=== PATIENT | male | born 1990 | race Caucasian/White ===

== ENCOUNTER 2016-10-16 21:14 | Emergency (ER) | payer SELFPAY ==
[2016-10-16 22:12] LABS: Basophils % (Auto) 0.6 % (0.0-1.8); Eosinophils % (Auto) 7.5 % (0.0-4.3); Hematocrit 46.3 % (35.5-45.6); Hemoglobin 15.8 gm/dl (11.8-15.2); Mean Corpuscular HGB Conc 34 % (32-34); Mean Corpuscular Hemoglobin 29 pg (28-32); Mean Corpuscular Volume 86 fl (84-94); Platelet Count 236 K/mm3 (140-440); Red Blood Count 5.37 M/mm3 (3.65-5.03); Red Cell Distribution Width 11.9 % (13.2-15.2); White Blood Count 8.6 K/mm3 (4.5-11.0)
[2016-10-16 22:15] LABS: Anion Gap 20 mmol/L; Blood Urea Nitrogen 12 mg/dL (9-20); Calcium 9.8 mg/dL (8.4-10.2); Carbon Dioxide 26 mmol/L (22-30); Chloride 101.7 mmol/L (98-107); Glucose 81 mg/dL (75-100); Potassium 4.4 mmol/L (3.6-5.0); Sodium 143 mmol/L (137-145)
[2016-10-17 05:07] VITALS: BP 126/83
--- NOTE | 2016-10-17 17:06 | ED Elopement Review ---
ED Pt Elopement review - Results review Lab results: Laboratory Tests 10/16/16 10/16/16 21:44 21:44 WBC 8.6 RBC 5.37 H Hgb 15.8 H Hct 46.3 H MCV 86 MCH 29 MCHC 34 RDW 11.9 L Plt Count 236 Lymph % (Auto) 40.3 H Cass % (Auto) 9.2 H Eos % (Auto) 7.5 H Baso % (Auto) 0.6 Lymph # 3.5 Cass # 0.8 Eos # 0.6 H Baso # 0.0 Seg Neutrophils % 42.4 Seg Neutrophils # 3.6 Sodium 143 Potassium 4.4 Chloride 101.7 Carbon Dioxide 26 Anion Gap 20 BUN 12 Creatinine 0.8 Estimated GFR > 60 BUN/Creatinine Ratio 15.00 Glucose 81 Calcium 9.8 Troponin T < 0.010 - Call Back decision Pt Call Back Decision: No action required
== END 2016-10-17 06:26 | disposition left against medical advice (07) ==
LOC: ED 21:14
DX: R07.89 Other chest pain (principal); M79.602 Pain in left arm; R06.00 Dyspnea, unspecified; Z88.1 Allergy status to other antibiotic agents; Z88.6 Allergy status to analgesic agent; Z53.21 Procedure and treatment not carried out due to patient leaving prior to being seen by health care provider
CPT/HCPCS: 36415; 80048; 84484; 85025; 93005; 93010